=== PATIENT | female | born 1990 | race Caucasian/White ===

== ENCOUNTER 2024-02-01 12:37 | Inpatient (IN) ==
[2024-02-01] MEDS ORDERED: ACETAMINOPHEN 325 MG TAB PO PRN (14:55)
--- NOTE | 2024-02-01 16:04 | Obstetrical Progress Note ---
Date of Service February 01, 2024 Subjective Patient is seen and examined 33 yo at 38.6 wks woke up with contractions at 4 am and has been feeling them every 2-4 min and gettiing very painful Pain -04/11 No LOF/VB +FM She has here on 01/23 with contractions and here cervix was 1-2 cm/ 50%/-3, posterior, after observation she went home She was feeling fine until this morning When she came today KAVITHA Whitehead checked her cervix and it was the same at around 13:30 She ambulated, used ball and she feels the same way. She is now sitting on the ball and breathing with contractions. I rechecked her cervix and it is the same 1-2 cm close to 2, 50%/ -3, posterior, unchanged. We discussed IVF hydration and pain management and reevaluate how she does in the few hours and offered IOL after 39 weeks. She was scheduled on 01/05 and desires the date moved to an earlier date. 02/02 has opening and her name put on there and she is very happy about it. Continue to monitor All questions were answered. Results & Data Vital Signs (Past 12 Hours) Vital Signs Temp Pulse Resp BP 02/01/24 12:47 36.8 C 109 H 20 117/83 02/01/24 12:45 36.8 C 109 H 20 117/83
[2024-02-01] MEDS: LACTATED RINGER'S 1,000 ML IV ONE (16:14)
[2024-02-01] MEDS: BUTORPHANOL TARTRATE 2 MG/ML VIAL IV ONE (16:24)
[2024-02-01] MEDS: LACTATED RINGER'S 1,000 ML IV SCH (17:08)
[2024-02-01] MEDS ORDERED: ACETAMINOPHEN 500 MG TAB PO PRN (18:58)
[2024-02-01] MEDS ORDERED: CALCIUM CARBONATE 500 MG CHEWABLE TAB PO PRN (18:58)
[2024-02-01] MEDS ORDERED: LIDOCAINE 1% LOCAL 20 ML VIAL INFIL PRN (18:58)
--- NOTE | 2024-02-01 18:58 | Obstetrical Progress Note ---
Date of Service February 01, 2024 Subjective Patient is reevaluated. She slept and woke up now. Feels better but still feels contractions regularly Patient desires to be induced when she become 39 weeks , after [place] FHR Categ I [place] cyxst q 2-4 min Plan to admit ambulate monitor start low dose Oxytocin and then epidural for pain All questions were answered. Results & Data Vital Signs (Past 12 Hours) Vital Signs Temp Pulse Resp BP 02/01/24 12:47 36.8 C 109 H 20 117/83 02/01/24 12:45 36.8 C 109 H 20 117/83
[2024-02-01 19:58] LABS: Hematocrit (blood only) 34.1 % (37.0-47.0); Hemoglobin 11.5 g/dl (12.0-16.0); Mean Corpuscular Hemoglobin 29.9 pg (25.0-34.0); Mean Corpuscular Hgb Conc 33.7 g/dL (32.0-36.0); Mean Corpuscular Volume 88.8 fL (80.0-100.0); Mean Platelet Volume 10.8 fL (9.4-12.4); Platelet Count 182 K/uL (130-400); RDW Coefficient of Variation 13.8 % (11.5-14.5); RDW Standard Deviation 44.5 fL (36.4-46.3); Red Blood Count 3.84 M/uL (4.20-5.40); White Blood Count 11.79 K/ul (4.8-10.8)
[2024-02-01 20:17] LABS: Albumin Globulin Ratio 1.1 (0.9-2); Albumin Level 3.4 gm/dl (3.4-5.0); Bilirubin,Total 1.1 mg/dl (0.2-1.0); Est GFR (African American) 148.4 ml/min; Est GFR (Non-African American) 128.1 ml/min; Total Protein 6.4 gm/dl (6.0-8.3)
--- OUTSIDE RECORDS SUMMARY | 2024-02-01 21:53 | External Medical Summary | Summary of Care ---
Author Name Unknown Organization [facility] Address [address] [place] [place] [address] Phone [phone] Care Team Providers Care Latin American Studies Professor Name Role Phone Unavailable Primary Care Provider Unavailabl e Encounter Details Date Type Department Care Team (Late st Contact Info) Description 01/25/2024 Result Scan Unspecified Department <No scans attached> Allergies No known active allergiesdocumented as of this encounter (statuses as of 01/28/2024) Medications Medication Sig Dispensed Refills Start Date End Date Status Phenazopyridine HCl 200 MG Oral Tablet (Pyridium)Indication s:Dysuria Take 1 Tablet by mouth 3 times a day as needed for Pain, Breakthrough. After meals for pain with urination 6 Tablet 10/30/2022 Active 6.75-0.2 MG Oral Tablet Take by mouth. Active Sertraline HCl 25 MG Oral Tablet (Zoloft)Indications: Anxiety during Take 1 Tablet by mouth in the morning. 30 Tablet 1 08/02/2023 Active documented as of this encounter (statuses as of 01/28/2024) Active Problems Problem Noted Date Diagnosed Date Dysplasia of cervix, high grade KAMRON 2 08/20/2023 Overview: Needs a LEEP Normal 08/14/2023 Depression complicating , antepartum Overview: Zoloft 12 wks Abnormal cervical Papanicola ou smear affecting in first trimester 07/09/2023 Overview: ASCUS/+HPV; colposcopy done at 14w3d Health counseling 07/03/2023 Overview: Problem Action Taken Date entered Entered by Date resolved Constipation Drink lots of water (120oz) daily Encourage proper diet of whole grains, fruits and veggies Daily exercise, especially walking 07/03/2023 Marni Bingham RN 07/03/2023 Depression Discuss options with Provider 07/03/2023 Marni Bingham RN 07/03/2023 Nausea and vomiting due to Nutrition Review 9 months booklet 07/03/2023 Marni Bingham RN 07/03/2023 Headache Increase fluids(non-caffeinated) Take 2 Tylenol according to the directions. Do not exceed 3 grams (3000mg) in 24 hours If persistent or severe, call your provider 07/03/2023 Marni Bingham RN 07/03/2023 Problem Action Taken Date entered Entered by Date resolved Current needs or questions Patient denies having any current needs or questions 08/02/2023 Jackeline García RN 08/02/2023 Problem Action Taken Date entered Entered by Date resolved Depression Discuss options with Provider 08/02/2023 Jackeline García RN 08/02/2023 Problem Action Taken Date entered Entered by Date resolved Current needs or questions Patient denies having any current needs or questions 11/22/2023 Jackeline García RN 11/22/2023 Problem Action Taken Date entered Entered by Date resolved Current needs or questions Patient denies having any current needs or questions 12/03/2023 Jackeline García RN 12/03/2023 Problem Action Taken Date entered Entered by Date resolved Current needs or questions Patient denies having any current needs or questions 12/20/2023 Tiffanie Rico RN 12/20/2023 Problem Action Taken Date entered Entered by Date resolved Current needs or questions Patient denies having any current needs or questions 01/03/2024 Jackeline García RN 01/03/2024 Problem Action Taken Date entered Entered by Date resolved Current needs or questions Patient denies having any current needs or questions 01/22/2024 Jackeline García RN 01/22/2024 ADVANCE DIRECTIVE INFORMATION 05/23/2005 Overview: Not applicable (under age of 18) Other acne 05/17/2004 Estimated Date of Delivery Comme nts Yes 02/09/2024 Based on Ultraso und documented as of this encounter (statuses as of 01/28/2024) Resolved Problems Problem Noted Date Diagnosed Date Resolved Date Other normal , not first 04/19/2016 08/14/2023 Overview: Problem Action Taken Date entered Entered by Date resolved Nutrition WIC referral 04/19/2016 Aisha Doshi, KAVITHA 04/19/17 Problem Action Taken Date entered Entered by Date resolved Unknown LMP Dating via ultrasound 04/19/2016 Aisha Doshi RN 04/19/17 Problem Action Taken Date entered Entered by Date resolved Current needs or questions Patient denies having any current needs or questions 07/17/2016 Zhane Kaufman RN 07/17/16 , normal first 06/19/201201/31 documented as of this encounter (statuses as of 01/28/2024) Immunizations Name Administration Dates Next Due HPV Vaccine, 4-Valent 12/29/2008,06/23/2008,06/03 Hep A - Hepatitis A (ped/adole, 1-18 Yrs) 2005 Meningococcal Conjugate Vacc ine (Menactra/Menveo) 07/01/2006 TDAP (age 11 and older)(Adacel) 06/23/2007 documented as of this encounter Social History Tobacco Use Types Packs/Day Years Used Date Smoking Tobacco: Never Smokeless Tobacco: Never Comments:never 06/23/08 Alcohol Use Standard Drinks/Week Comments Yes 0 (1 standard drink = 0.6 oz pur e alcohol) rarely PHQ-2 Answer Date Recorded PHQ Adult Total Score 1 08/02/2023 Hunger Vital Sign Answer Date Recorded Within the past 12 months, y ou worried that your food would run out before you got the money to buy more. Never true 07/03/20 23 Within the past 12 months, t he food you bought just didn't last and you didn't have money to get more. Never true 07/03/2023 Robbins Depression Scale Answer Date Recorded Robbins Depression Scale Total 8 01/03/2024 The thought of harming myself has occurred to me . Never 01/03/2024 Estimated Date of Delivery Comme nts Yes 02/09/2024 Based on Ultraso und Sex and Gender Information Value Date Recorded Sex Assigned at Female 07/03/2023 10:56 AM EDT Gender Identity Female 07/03/2023 10:56 AM EDT Sexual Orientation Bisexual 07/03/2023 10 :56 AM EDT Job Start Date Occupation Industry Not on file Not on file Not on file documented as of this encounter Plan of Treatment Upcoming Encounters Date Type Department Care Team (Late st Contact Info) Description 01/30/2024 8:15 AM EDT Office Visit Gynecology/Obstetrics Carlosumair Thakur [address] [place] [address] Katherine Burnett PA-C [address] [place] [address] [place] [address] Nurse [facility] [address] [place] [phone] 02/07/2024 9:00 AM EDT Office Visit Gynecology/Obstetrics Carlosumair Blaze [address] [place] [address] Ann Barber PA-C [address] [place] [address] Nurse Blaze [facility] [address] [place] [phone] Health Maintenance Due Date Last Done Comments DTaP,Tdap,and Td Vaccines (7 - Td or Tdap) 06/23/2017 06/23/2007, 03/23/2005, 12/16/1995, Additional history exists COVID-19 Vaccine ( season) 2023 Influenza Vaccine (FLU shot) (Season Ended) 2024 Pap Smear 07/03/2026 07/03/2023, 03/04, 03/31/2015, Additional history exists Cervical Cancer Screening 07/03/2028 HPV/Co-Test 07/03/2028 07/03/2023 Hepatitis B Completed 07/20/1996, 01/31, 01/16/1996 MENINGOCOCCAL (MENACTRA/MENVEO) Aged Out 07/01/2006 No longer eligible based on patient's age to complete this topic GARDASIL-HPV IMMUNIZATION SERIES Completed 12/29/2008, 06/23/2008, 06/23/2007 Pneumococcal Vaccine: Pediatrics (0 to 5 Years) and At-Risk Patients (6 to 64 Years) Aged Out No longer eligible based on patient's age to complete this topic documented as of this encounter Medical Devices Not on filedocumented as of this encounter Procedures Procedure Name Priority Date/Time Associated Diagnosis Comments OUTSIDE LAB RESULTS 01/25/2024 documented in this encounter Results * OUTSIDE LAB RESULTS (01/25/2024) 01/25/2024 No Physician Data Unknown LABORATORY documented in this encounter
--- OUTSIDE RECORDS SUMMARY | 2024-02-01 21:53 | External Medical Summary | Summary of Care ---
Author Name Unknown Organization [facility] Address [address] [facility] [address] Phone [phone] Care Team Providers Care Circulation Worker Name Role Phone Unavailable Primary Care Provider Unavailabl e Reason for Visit * Reason Comments [facility] Encounter Details Date Type Department Care Team (Late st Contact Info) Description 01/30/2024 8:15 AM EDT Office Visit Gynecology/Obstetri kris Thakur [address] [facility] [place] [address] Katherine Burnett PA-C [address] [facility] [place] [address] Nurse Blaze [facility] [address] [facility] [place] [phone] Normal in third trimester*; Depression complicating , antepartum; Dysplasia of cervix, high grade KAMRON 2; Abnormal cervical Papanicolaou smear affecting in first trimester; Health counseling Allergies No known active allergiesdocumented as of this encounter (statuses as of 01/30/2024) Medications Medication Sig Dispensed Refills Start Date [...] as of this encounter (statuses as of 01/30/2024) Active Problems Problem Noted Date Diagnosed Date [...] or questions 01/22/2024 Jackeline García RN 01/22/2024 Problem Action Taken Date entered Entered by Date resolved Current needs or questions Patient denies having any current needs or questions 01/30/2024 Tiffanie Rico RN 01/30/2024 ADVANCE DIRECTIVE INFORMATION 05/23/2005 Overview: Not applicable (under age of 18) Other acne 05/17/2004 Estimated Date of Delivery Comme nts Yes 02/09/2024 Based on Ultraso und documented as of this encounter (statuses as of 01/30/2024) Resolved Problems Problem Noted Date Diagnosed Date Resolved Date Other normal , not first 04/19/2016 08/14/2023 Overview: Problem Action Taken Date entered Entered by Date resolved Nutrition WIC referral 04/19/2016 Aisha Doshi RN 04/19/17 Problem Action Taken Date entered Entered by Date resolved Unknown LMP Dating via ultrasound 04/19/2016 Aisha Doshi RN 04/19/17 Problem Action Taken Date entered Entered by Date resolved Current needs or questions Patient denies having any current needs or questions 07/17/2016 Zhane Kaufman RN 07/17/16 , normal first 06/19/201201/31 documented as of this encounter (statuses as of 01/30/2024) Immunizations Name Administration Dates Next Due HPV Vaccine, 4-Valent 12/29/2008,06/23/2008,06/03 Hep A - Hepatitis A (ped/adole, 1-18 Yrs) 2005 Meningococcal Conjugate Vacc ine (Menactra/Menveo) 07/01/2006 TDAP, Age 7 and older, IM (Adacel) 06/23/2007 documented as of this encounter Social [...] money to get more. Never true 07/03/2023 Oxford Depression Scale Answer Date Recorded Oxford Depression Scale Total 8 01/03/2024 The thought [...] on file documented as of this encounter Last Filed Vital Signs Vital Sign Reading Time Taken Comments Blood Pressure 114/68 01/30/2024 8:24 AM EDT Pulse - - Temperature - - Respiratory Rate - - Oxygen Saturation - - Inhaled Oxygen Concentration - - Weight 88 kg (194 lb) 01/30/2024 8:24 AM EDT Height 165.1 cm (5' 5") 01/30/2024 8:24 AM EDT Body Mass Index 32.28 01/30/2024 8:24 AM EDT documented in this encounter Progress Notes * Katherine Burnett PA-C - 01/30/2024 8:18 AM EDT Ehsan Bernabe is a 33 year old female here for her routine OB appointment at 38w4d Her Estimated Date of Delivery: 02/09/24 Was seen on L&D Saturday into Saturday for regular and painful contractions. Per note from [facility], patient was having irregular uterine contractions on the monitor. Cervix unfavorable. Patient elected to go home from L&D at that time. Over the weekend, her contractions continued at the same interval and intensity into Saturday. She also lost her mucus plug. On Saturday she called in to the office and was advised to come in when contractions were closer together. Saturday morning, her regular contractions stopped. Currently, she is continuing to lose pieces of her mucus plug. Contractions are coming more sporadically since Saturday. She also is unsure if when she urinates if she is leaking fluid. REVIEW OF SYSTEMS She affirms movement. Denies vaginal bleeding, N/V, headaches, vision changes, chest pain, deep calf pain, RUQ pain. PHYSICAL EXAM Filed Vitals: 01/30/24 0824 BP: 114/68 Weight: 88 kg (194 lb) Height: 1.651 m (5' 5") +FHT 130s Fundal height 38 cm Nitrazine negative. No pooling. No bleeding. CE: /3 Refrigeration Operator Documentation Patient offered computational geneticist and accepted. Name of computational geneticist: Lindy Henry LPN. ASSESSMENT/PLAN Normal in third trimester (Primary) Depression complicating , antepartum Dysplasia of cervix, high grade KAMRON 2 - Needs LEEP PP Abnormal cervical Papanicolaou smear affecting in first trimester Health counseling Supervision of - strict labor precautions and kick counts reviewed. Patient states she has the L&D phone numbers. - plan for IOL as scheduled 02/06/2024. Follow-Up: Patient scheduled in 1 week for IOL at [facility]. RTO PRN with concerns. To call the office with any questions or concerns. Katherine Burnett PA-C 01/30/2024 documented in this encounter Nursing Notes * Lindy Snow LPN - 01/30/2024 8:34 AM EDT 38w3d Was at L+D for labor check over the weekend. documented in this encounter Plan of Treatment Upcoming Encounters Date Type Department Care Team (Late st Contact Info) Description 02/07/2024 9:00 AM EDT Office Visit Gynecology/Obstetrics Susie Thakur [address] [place] [address] Ann Barber PA-C [address] [place] [phone] Nurse Blaze [facility] Gabby [address] [place] [address] Health Maintenance Due Date Last Done Comments [...] Not on filedocumented as of this encounter Visit Diagnoses Diagnosis Normal in third trimester- Primary Depression complicating , antepartum Mental disorders of mother, antepartum Dysplasia of cervix, high grade KAMRON 2 Abnormal cervical Papanicolaou smear affecting in first trimester Health counseling Other specified counseling documented in this encounter
[2024-02-02] MEDS: LACTATED RINGER'S 1,000 ML IV PRN (00:10)
--- NOTE | 2024-02-02 00:26 | Obstetrical Progress Note ---
Date of Service February 02, 2024 Assessment & Plan Admission and Anticipated Discharge Date Admission Date: February 01, 2024 Subjective Nursing staff is starting Oxytocin Patient is uncomfortable from 's Bed side US; vertex, head is spinning around with FM's, measurements 36-38 wks, 3072 hr, placenta left lateral, AFV normal FHR categ I Patient desires epidural for pain Continue to monitor Lab Results 02/01/24 Range/Units 19:37 WBC 11.79 H (4.8-10.8) K/ul RBC 3.84 L (4.20-5.40) M/uL Hgb 11.5 L (12.0-16.0) g/dl Hct 34.1 L (37.0-47.0) % MCV 88.8 (80.0-100.0) fL MCH 29.9 (25.0-34.0) pg MCHC 33.7 (32.0-36.0) g/dL RDW Std Deviation 44.5 (36.4-46.3) fL RDW Coeff of Karen 13.8 (11.5-14.5) % Plt Count 182 (130-400) K/uL MPV 10.8 (9.4-12.4) fL Sodium 137 (136-145) mmol/L Potassium 4.0 (3.5-5.1) mmol/L Chloride 105 (98-107) mmol/L Carbon Dioxide 23 (21-32) mmol/L Anion Gap 9 (3-11) BUN 5 L (6-23) mg/dl Creatinine 0.50 L (0.6-1.2) mg/dl Est Cr Clr Drug Dosing 177.0 ml/min Est GFR ( Amer) 148.4 ml/min Est GFR (Non-Af Amer) 128.1 ml/min BUN/Creatinine Ratio 10.0 (10-20) Glucose 103 H (70-99(Fasting)) mg/dl Calcium 9.0 (8.6-10.3) mg/dl Total Bilirubin 1.1 H (0.2-1.0) mg/dl AST 16 (13-39) U/L ALT 10 (7-52) U/L Alkaline Phosphatase 152 H (34-104) U/L Total Protein 6.4 (6.0-8.3) gm/dl Albumin 3.4 (3.4-5.0) gm/dl Globulin 3.0 (2.5-4.0) gm/dl Albumin/Globulin Ratio 1.1 (0.9-2) Results & Data Vital Signs (Past 12 Hours) Vital Signs Temp Pulse Resp BP 02/01/24 19:30 36.8 C 16 02/01/24 18:56 18 02/01/24 18:56 36.8 C 18 02/01/24 18:55 99 H 134/75 02/01/24 12:47 36.8 C 109 H 20 117/83 02/01/24 12:45 36.8 C 109 H 20 117/83
[2024-02-02] MEDS: OXYTOCIN 30 UNITS/NSS 30 UNITS/500 ML BAG IV PRN ×2 (00:28→16:30)
[2024-02-02] MEDS: fentANYL 2 MCG/ML BUPIVacaine 0.125%-NSS 100ML BAG ONE (01:44)
[2024-02-02] MEDS: BUPIVACAINE 0.25% PF 30 ML VIAL ONE (01:44)
[2024-02-02] MEDS: LIDOCAINE 2%/EPINEPHRINE 1:200,000 20 ML PF ONE (01:44)
[2024-02-02] MEDS: SODIUM CHLORIDE 0.9% PF INJ 10 ML VIAL ONE (01:46)
[2024-02-02] MEDS: fentaNYL citrate PF 100 MCG/2 ML VIAL ONE (01:46)
--- NOTE | 2024-02-02 01:54 | Anesthesiology Consultation ---
Date of Service February 02, 2024 Assessment & Plan Chart Review Chart Review: Acceptable Risk for Labor Epidural Consults Requested none History Height/Weight Height: 5 ft 5 in Weight: 87.997 kg Allergies Allergy/AdvReac Type Severity Reaction Status Date / Time No Known Allergies Allergy Unverified 06/24/19 16:38 Medications Home Medications Medication Instructions Recorded Confirmed Last Taken vits no.124-ferrous fum 1 tab PO DAILY 02/01/24 02/01/24 02/01/24 08:00 27 mg iron-folic acid 800 mcg tablet ( Vitamin) Active Medications Generic Name Dose Route Start Last Admin Trade Name Freq PRN Reason Stop Dose Admin Lactated Ringer's 1,000 mls @ 250 mls/hr 02/01/24 16:30 02/01/24 18:58 Lr IV 03/02/24 16:29 0 mls/hr .Q4H EBONI Infusion Lactated Ringer's 1,000 mls @ 150 mls/hr 02/01/24 18:58 02/02/24 00:40 Lr IV 02/03/24 18:57 150 mls/hr .Q6H40M PRN Infusion L&D Protocol Protocol Oxytocin 30 units in 500 mls @ 3 mls/hr 02/01/24 23:23 02/02/24 01:05 Pitocin 30 Units/Nss IV 02/03/24 23:22 0.18 units/hr .Q24H PRN 3 mls/hr Labor Induction/Augmentation Titration Protocol 0.18 UNITS/HR Past Medical History Medical History No pertinent past medical history Past Surgical History Surgical History No pertinent past surgical history Social History Smoking Status: Never smoker Do You Dip or Chew Tobacco: No Hx Alcohol Use: No Hx Substance Use: No substance use type: does not use Physical Exam Vital Signs Last Vital Signs Temp 36.6 C 02/02/24 00:00 Pulse 109 H 02/02/24 01:52 Resp 16 02/02/24 00:00 BP 122/71 02/02/24 01:52 Pulse Ox 98 02/02/24 01:50 Testing Laboratory Results 02/01/24 19:37 02/01/24 19:37
[2024-02-02] MEDS ORDERED: ROPIVACAINE 0.5% PF 5 MG/ML 20 ML VIAL EPI PRN (01:56)
[2024-02-02] MEDS ORDERED: NALOXONE HCL 0.4 MG/1 ML VIAL/CARP IV PRN (01:56)
[2024-02-02] MEDS ORDERED: BUPIVACAINE 0.25% PF 30 ML VIAL EPI PRN (01:56)
[2024-02-02] MEDS ORDERED: NALBUPHINE HCL 5 MG in SYRINGE 0 ML IV PRN (01:56)
[2024-02-02] MEDS ORDERED: NALOXONE HCL 1 MG in SODIUM CHLORIDE 0.9% 1,000 ML IV PRN (01:56)
[2024-02-02] MEDS ORDERED: SODIUM CHLORIDE 0.9% PF INJ 10 ML VIAL EPI PRN (01:56)
[2024-02-02] MEDS ORDERED: fentaNYL citrate PF 100 MCG/2 ML VIAL EPI PRN (01:56)
[2024-02-02] MEDS ORDERED: LIDOCAINE 2% MPF LOCAL 5 ML VIAL EPI PRN (01:56)
[2024-02-02] MEDS ORDERED: diphenhydrAMINE 50 MG/ML VIAL IV PRN (01:56)
[2024-02-02] MEDS ORDERED: ePHEDrine sulfate 50 MG/ML AMP IV PRN (01:56)
[2024-02-02] MEDS: BUPIVACAINE 0.25% PF 30 ML VIAL EPI STA (03:04)
[2024-02-02] MEDS: LIDOCAINE 2%/EPINEPHRINE 1:200,000 20 ML PF EPI STA (03:04)
[2024-02-02] MEDS: fentaNYL citrate PF 100 MCG/2 ML VIAL EPI STA (03:04)
[2024-02-02] MEDS: SODIUM CHLORIDE 0.9% PF INJ 10 ML VIAL EPI STA (03:04)
[2024-02-02] MEDS: fentANYL 2 MCG/ML BUPIVacaine 0.125%-NSS 100ML BAG EPI PRN (10:37)
--- NOTE | 2024-02-02 10:49 | Obstetrical Progress Note ---
Date of Service February 02, 2024 Assessment & Plan Admission and Anticipated Discharge Date Admission Date: February 01, 2024 Subjective Patient is comfortable recevied epidural VE; 3-4 cm/ 50%/-3, AROM'ed, clear fluid FHR categ I Ctxs q 3-4 min Oxytocin is at 20 miu/min Continue to monitor closely Results & Data Vital Signs (Past 12 Hours) Vital Signs Temp Pulse Resp BP Pulse Ox 02/02/24 10:42 89 99 02/02/24 10:37 84 99 02/02/24 10:32 99 02/02/24 10:32 94 H 02/02/24 10:32 90 119/60 02/02/24 10:27 90 99 02/02/24 10:17 93 H 122/73 02/02/24 10:03 90 134/88 02/02/24 09:46 78 131/76 02/02/24 09:33 92 H 132/86 02/02/24 09:25 95 02/02/24 09:25 85 02/02/24 09:25 90 94 02/02/24 09:20 88 94 02/02/24 09:18 86 94 02/02/24 09:16 96 H 132/80 02/02/24 09:15 86 95 02/02/24 09:12 84 94 02/02/24 09:10 79 95 02/02/24 09:06 83 94 02/02/24 09:05 86 96 02/02/24 09:01 93 H 02/02/24 09:01 88 132/72 93 02/02/24 09:00 91 H 97 02/02/24 08:56 85 94 02/02/24 08:55 82 94 02/02/24 08:50 96 02/02/24 08:50 79 02/02/24 08:50 82 93 02/02/24 08:47 76 133/72 02/02/24 08:45 83 95 02/02/24 08:42 88 94 02/02/24 08:40 87 95 02/02/24 08:37 80 94 02/02/24 08:35 87 95 02/02/24 08:32 79 118/73 02/02/24 08:30 89 18 94 02/02/24 08:25 92 H 94 02/02/24 08:20 83 95 02/02/24 08:16 94 H 119/70 02/02/24 08:15 93 H 96 02/02/24 08:10 95 H 97 02/02/24 08:05 92 H 95 02/02/24 08:02 93 H 125/75 02/02/24 08:01 18 02/02/24 08:01 18 02/02/24 08:00 95 H 95 02/02/24 07:55 101 H 18 97 02/02/24 07:50 101 H 97 02/02/24 07:46 100 H 129/77 02/02/24 07:45 101 H 18 96 02/02/24 07:40 85 96 02/02/24 07:35 90 96 02/02/24 07:33 86 94 02/02/24 07:31 87 125/66 02/02/24 07:30 86 95 02/02/24 07:25 87 96 02/02/24 07:21 88 93 02/02/24 07:20 99 H 94 02/02/24 07:17 82 124/68 02/02/24 07:15 84 95 02/02/24 07:14 96 H 94 02/02/24 07:10 101 H 97 02/02/24 07:05 86 95 02/02/24 07:04 81 94 02/02/24 07:01 83 108/55 L 02/02/24 07:00 82 16 95 02/02/24 06:59 90 93 02/02/24 06:55 85 94 02/02/24 06:53 88 93 02/02/24 06:50 92 H 97 02/02/24 06:46 90 109/56 L 02/02/24 06:45 89 95 02/02/24 06:44 89 94 02/02/24 06:40 79 95 02/02/24 06:35 88 95 02/02/24 06:32 85 112/65 02/02/24 06:31 86 94 02/02/24 06:30 77 16 95 02/02/24 06:25 88 95 02/02/24 06:20 91 H 96 02/02/24 06:16 84 131/65 02/02/24 06:15 72 96 02/02/24 06:10 107 H 97 02/02/24 06:05 78 96 02/02/24 06:02 81 108/58 L 02/02/24 06:00 77 16 96 02/02/24 05:57 77 94 02/02/24 05:55 89 95 02/02/24 05:51 84 92 02/02/24 05:50 84 96 02/02/24 05:46 90 112/63 02/02/24 05:45 97 02/02/24 05:45 83 02/02/24 05:45 94 H 94 02/02/24 05:40 82 94 02/02/24 05:39 78 94 02/02/24 05:35 75 95 02/02/24 05:34 81 93 02/02/24 05:31 93 H 112/64 02/02/24 05:30 79 18 95 02/02/24 05:28 84 94 02/02/24 05:25 79 92 02/02/24 05:23 77 94 02/02/24 05:20 77 93 02/02/24 05:17 78 94 02/02/24 05:16 81 105/57 L 02/02/24 05:15 78 95 02/02/24 05:12 83 94 02/02/24 05:10 81 95 02/02/24 05:06 79 93 02/02/24 05:05 76 95 02/02/24 05:03 73 108/57 L 02/02/24 05:00 36.8 C 82 16 95 02/02/24 04:55 78 94 02/02/24 04:54 82 94 02/02/24 04:50 81 95 02/02/24 04:49 80 94 02/02/24 04:47 80 107/61 02/02/24 04:45 79 95 02/02/24 04:44 86 94 02/02/24 04:40 86 94 02/02/24 04:38 85 94 02/02/24 04:35 92 H 94 02/02/24 04:34 95 H 111/67 02/02/24 04:33 106 H 94 02/02/24 04:30 16 02/02/24 04:30 16 02/02/24 04:30 109 H 98 02/02/24 04:25 97 H 96 02/02/24 04:20 104 H 98 02/02/24 04:19 83 93 02/02/24 04:16 95 H 124/70 02/02/24 04:15 92 H 95 06 04:12 93 H 94 02/02/24 04:10 86 95 02/02/24 04:06 92 H 94 02/02/24 04:05 88 95 02/02/24 04:02 86 121/70 02/02/24 04:00 88 18 95 02/02/24 03:55 87 96 02/02/24 03:52 91 H 93 02/02/24 03:50 95 H 96 02/02/24 03:46 88 127/55 L 02/02/24 03:45 88 95 02/02/24 03:40 88 95 02/02/24 03:39 93 H 94 02/02/24 03:35 93 H 94 02/02/24 03:34 93 H 93 02/02/24 03:31 86 122/63 02/02/24 03:30 91 H 18 95 02/02/24 03:25 92 H 97 02/02/24 03:21 92 H 94 02/02/24 03:20 88 97 02/02/24 03:16 85 114/65 02/02/24 03:15 87 97 02/02/24 03:10 79 94 02/02/24 03:09 96 H 93 02/02/24 03:05 84 95 02/02/24 03:03 94 H 94 02/02/24 03:02 87 123/70 02/02/24 03:00 95 H 16 95 02/02/24 02:56 88 94 02/02/24 02:55 97 H 95 02/02/24 02:50 92 H 95 02/02/24 02:46 98 H 130/75 02/02/24 02:45 89 95 02/02/24 02:40 89 97 02/02/24 02:39 97 H 94 02/02/24 02:35 101 H 95 02/02/24 02:32 87 93 02/02/24 02:30 16 02/02/24 02:30 16 02/02/24 02:30 96 02/02/24 02:30 94 H 02/02/24 02:30 93 H 118/64 02/02/24 02:26 96 H 94 02/02/24 02:25 96 06/02/24 02:25 92 H 06/24 02:25 94 H 125/68 02/02/24 02:20 91 H 124/65 97 02 02:15 93 H 125/70 96 02/02/24 02:10 95 H 123/68 96 02/02/24 02:05 97 H 125/71 96 02/02/24 02:00 96 02/02/24 02:00 109 H 02/02/24 02:00 101 H 16 115/63 02/02/24 01:55 102 H 96 02/02/24 01:54 104 H 16 123/74 02/02/24 01:52 109 H 122/71 02/02/24 01:50 98 02/02/24 01:50 102 H 02/02/24 01:50 98 H 121/70 02/02/24 01:48 99 H 124/68 02/02/24 01:46 97 H 127/68 02/02/24 01:45 107 H 97 02/02/24 01:44 98 H 129/69 02/02/24 01:41 98 H 138/65 92 02/02/24 01:40 93 H 98 02/02/24 01:35 102 H 99 02/02/24 01:30 102 H 97 02/02/24 01:25 97 H 94 02/02/24 01:22 90 93 02/02/24 01:20 97 H 96 02/02/24 01:15 98 H 97 02/02/24 01:10 91 H 96 02/02/24 01:05 92 H 96 02/02/24 01:00 93 H 96 02/02/24 00:56 101 H 94 02/02/24 00:55 99 H 96 02/02/24 00:50 93 H 98 02/02/24 00:42 86 97 02/02/24 00:37 92 H 97 02 00:32 93 H 116/80 96 02/02/24 00:00 16 02/02/24 00:00 36.6 C 16
[2024-02-02] MEDS ORDERED: bisacodyL 10 MG SUPP PR PRN (16:23)
[2024-02-02] MEDS ORDERED: OXYTOCIN 30 UNITS/NSS 30 UNITS/500 ML BAG IV PRN (16:23)
[2024-02-02] MEDS ORDERED: HYDROCORTISONE ACETATE 25 MG SUPP PR PRN (16:23)
[2024-02-02] MEDS ORDERED: oxyCODONE/ACETAMINOPHEN 5mg/325mg TAB PO PRN (16:23)
--- NOTE | 2024-02-02 16:29 | Delivery Summary ---
Vaginal Delivery Summary Date of Service February 02, 2024 Vaginal Delivery Summary Patient was found to be fully dilated and desires to push. She pushed with 2 contractions and delivered the head and then shoulders with minimal traction at 16:01. The baby was handed off to the mother. The cord was clampedx2 and cut at 1 minute. The vagina and perineum were checked and found to have small superficial 1st degree laceration ay 6 o'clock position on hymen. The vaginal mucosa was repaired with 3/0 vicryl on SH needle. The placenta was delivered spontaneously as intact and complete. The uterus was explored and found to be empty. QBL was 252 ml. The fundus was firm The baby was a viable FEMALE , Apgars 8/8, the weight is pending The mother and the baby tolerated the procedure well. No complications happened and I was present during whole procedure.
[2024-02-02] MEDS: ePHEDrine sulfate 50 MG/ML AMP ONE (17:08)
--- NOTE | 2024-02-02 18:10 | Anesthesia Procedure Note ---
Date of Service February 02, 2024 Anesthesia Post Epidural Note Vital Signs Vital Signs: Temp Pulse Resp BP Pulse Ox 37.0 C 100 H 18 128/83 94 02/02/24 15:40 02/02/24 18:01 02/02/24 15:40 02/02/24 18:01 02/02/24 16:04 Pain Intensity Abdomen: Pain Intensity: 0 Notes Mental Status: alert / awake / arousable Nausea / Vomiting: adequately controlled Pain: adequately controlled Airway Patency, RR, SpO2: stable & adequate BP & HR: stable & adequate Hydration State: stable & adequate Neuraxial Anesthesia: was administered and sensory block is resolving Anesthetic Complications: no major complications apparent Epidural: Removed without complications and With tip intact
[2024-02-02] MEDS: IBUPROFEN 600 MG TAB PO PRN (20:31)
[2024-02-02] MEDS: DOCUSATE SODIUM 100 MG CAP PO SCH (20:31)
[2024-02-02] MEDS: BENZOCAINE 20% SPRY 85 APPLN/85 GM CAN EXT PRN (20:31)
[2024-02-02] MEDS: ACETAMINOPHEN 325 MG TAB PO PRN (23:15)
[2024-02-03 06:28] LABS: Hematocrit (blood only) 31.3 % (37.0-47.0); Hemoglobin 10.4 g/dl (12.0-16.0); Mean Corpuscular Hemoglobin 29.9 pg (25.0-34.0); Mean Corpuscular Hgb Conc 33.2 g/dL (32.0-36.0); Mean Corpuscular Volume 89.9 fL (80.0-100.0); Mean Platelet Volume 11.9 fL (9.4-12.4); Platelet Count 160 K/uL (130-400); RDW Coefficient of Variation 13.8 % (11.5-14.5); RDW Standard Deviation 44.9 fL (36.4-46.3); Red Blood Count 3.48 M/uL (4.20-5.40); White Blood Count 12.07 K/ul (4.8-10.8)
[2024-02-03] MEDS: PRENATAL VITAMIN 1 TAB PO SCH (08:28)
[2024-02-03] MEDS: FERROUS SULFATE 325 MG TAB PO SCH (08:28)
--- NOTE | 2024-02-03 10:50 | Obstetrical Progress Note ---
Date of Service February 03, 2024 Assessment & Plan (1) Normal course: PPD #1 Pt doing well d/c home this evening Results & Data Vital Signs (Past 12 Hours) Vital Signs Temp Pulse Resp BP Pulse Ox O2 Del Method 02/03/24 08:20 36.7 C 99 H 20 126/83 99 Room Air 02/03/24 03:45 36.8 C 106 H 20 125/89 97 Room Air 02/02/24 23:30 37.0 C 94 H 18 118/76 96 Room Air
[2024-02-03] MEDS: MEASLES, MUMPS & RUBELLA VIRUS VACCINE (MMR) 0.5ML VIAL SQ ONE (17:03)
[2024-02-03] MEDS: DIPHTHER/TETAN/PERTUS Vaccine (Tdap, Adol/Adult) 0.5mL IM ONE (17:03)
[2024-02-03] MEDS ORDERED: bisacodyL 5 MG TABEC PO SCH (20:00)
[2024-02-04 12:17] LABS: HBSAG NON-REACTIVE (NON-REACTIVE)
== END 2024-02-03 17:00 | disposition home or self-care (01) | DRG 807 ==
LOC: OPB 12:37 → 4S1 12:38 → 4E2 02-02 19:00